=== PATIENT | male | born 1950 | race Caucasian/White ===

== ENCOUNTER 2018-07-16 05:20 | Day surgery (SDC) | payer BC, OTHER ==
[~2018-07-16] VITALS: Ht 182.9 cm; Wt 100.7 kg
--- NOTE | ~2018-07-16 | PATH ---
[facility] [address] [place] [address] PATHOLOGY RPT PROCEDURE Name: AMBIKA BARKLEY Room #: DEP [facility].#: [id number] Admission: 07/16/18 Date of : 54 Discharge: 07/16/18 Report #: [id number] Path Case #: [id number] [facility] Accession Number: [id number] . 01 Material submitted: . PERONEAL TENDON LEFT . 01 Clinical history: . Tendon tear left foot . 02 Diagnosis: Left peroneal tendon, repair: - Dense fibrous connective tissue associated with reactive changes, and focal hemorrhage, history of tendon tear. (IUV:pit 07/20/2018) QTP/07/20/2018 . 02 Electronically signed: . Kaity Scruggs MD, Pathologist NPI- [id number] . 01 Gross description: . Received in formalin labeled "Ambika Barkley, peroneal tendon left," are four segments of pearlescent white-barger, fibrous tissue ranging from 1.1 x 0.5 x 0.5 cm to 5.3 x 1.0 x 0.2 cm in greatest dimensions. Sectioning reveals pale barger cut surfaces partially filled with firm to friable, white-barger to yellow-barger material. Manager Ed tissue is submitted in cassette A1. (DAC; 07/17/2018) XDC/XDC . 02 Pathologist provided ICD-10: S96.912A . 02 CPT . 229571 Specimen Comment: A courtesy copy of this report has been sent to Specimen Comment: [phone], , . Specimen Comment: Report sent to ,DR PARKS / DR MARQUEZ Specimen Comment: A duplicate report has been generated due to demographic updates. Performed at: [address] [id number] MD Honorio Ma MD Phone: [phone] Performed at: 02 [place] [address] PATHOLOGY RPT PROCEDURE Name: AMBIKA BARKLEY Room #: [place] [facility] [place] [id number] Admission: 07/16/18 Date of : 54 Discharge: 07/16/18 Report #: [id number] Path Case #: [id number] [address] [facility], [place], [place] [id number] MD Kaity Scruggs MD Phone: [phone]
[~2018-07-16 05:20] MED LIST: ASPIRIN325 PO; ATORVASTATIN CA40 MG PO; B COMPLEX1 EACH PO; CENTRUM SILVER1 EAC2 PO; GLUCOSAMINE CH1 EAC7 PO; PRINIVIL20 MG PO
[2018-07-16 11:44] LABS: HEMATOCRIT 46.7 % (42.0-52.0); HEMOGLOBIN 16.7 gm/dL (14.0-18.0); MCHC 35.7 g/dL (28.0-37.0); MCV 89.5 fL (80.0-100.0); RBC 5.21 mil/uL (4.50-6.00); RDW 12.9 % (10.5-14.5); WBC 8.4 thou/uL (4.0-11.0)
[2018-07-16 12:06] LABS: CALCIUM 9.7 mg/dL (8.5-10.1); CREATININE 1.2 mg/dL (0.7-1.3); POTASSIUM 4.2 mmol/L (3.5-5.1)
[2018-07-16 12:59] VITALS: BP 141/77
== END 2018-07-16 17:00 | disposition home or self-care (01) ==
LOC: OR 05:20 → TBA 05:21 → OR 11:41
PROVIDERS: Podiatrist Foot & Ankle Surgery
DX: S86.312A Strain of muscle(s) and tendon(s) of peroneal muscle group at lower leg level, left leg, initial encounter (principal); I10 Essential (primary) hypertension; E78.00 Pure hypercholesterolemia, unspecified; Z98.890 Other specified postprocedural states; Z79.899 Other long term (current) drug therapy; Z79.82 Long term (current) use of aspirin; X58.XXXA Exposure to other specified factors, initial encounter; Y93.89 Activity, other specified; Y92.89 Other specified places as the place of occurrence of the external cause; Y99.8 Other external cause status
CPT/HCPCS: 50010; 50101; 50386; 51412; 55430; 56524; 56525; 56526; 56530; 57091; 57180; 62110; 62900; 70005

== ENCOUNTER → 2019-12-30 | Outpatient (CLI) | payer BC, OTHER | LOC: SJCVCIMAG 14:42 | DX: I25.10 Atherosclerotic heart disease of native coronary artery without angina pectoris (principal); I10 Essential (primary) hypertension; E78.00 Pure hypercholesterolemia, unspecified ==

== ENCOUNTER → 2020-08-29 | Outpatient (CLI) | payer OTHER | LOC: SJCVC 13:42 | PROVIDERS: ATTEND Internal Medicine Cardiovascular Disease | DX: I25.10 Atherosclerotic heart disease of native coronary artery without angina pectoris (principal); R93.1 Abnormal findings on diagnostic imaging of heart and coronary circulation; I10 Essential (primary) hypertension; E78.00 Pure hypercholesterolemia, unspecified; I25.2 Old myocardial infarction ==

== ENCOUNTER → 2021-07-04 | Outpatient (CLI) | payer OTHER | LOC: SJCVCIMAG 07:53 | PROVIDERS: ATTEND Internal Medicine Cardiovascular Disease | DX: R93.1 Abnormal findings on diagnostic imaging of heart and coronary circulation (principal) ==